=== PATIENT | female | born 1975 | race Caucasian/White ===

== ENCOUNTER → 2017-09-29 | Outpatient (CLI) | payer OTHER | END | disposition home or self-care (01) | LOC: LAB 07:25 | DX: R19.5 Other fecal abnormalities (principal) ==

== ENCOUNTER 2017-11-21 07:15 | Outpatient (CLI) | payer OTHER | END 2017-11-21 07:19 | disposition home or self-care (01) | LOC: LAB 07:15 | DX: D51.0 Vitamin B12 deficiency anemia due to intrinsic factor deficiency (principal); D51.1 Vitamin B12 deficiency anemia due to selective vitamin B12 malabsorption with proteinuria; D50.0 Iron deficiency anemia secondary to blood loss (chronic); D68.0 Von Willebrand disease; D68.8 Other specified coagulation defects; E03.8 Other specified hypothyroidism; N93.8 Other specified abnormal uterine and vaginal bleeding; K29.70 Gastritis, unspecified, without bleeding ==

== ENCOUNTER → 2018-03-28 07:28 | Outpatient (CLI) | payer OTHER | END | disposition home or self-care (01) | LOC: LAB 07:28 | DX: D51.0 Vitamin B12 deficiency anemia due to intrinsic factor deficiency (principal); D51.1 Vitamin B12 deficiency anemia due to selective vitamin B12 malabsorption with proteinuria; D50.0 Iron deficiency anemia secondary to blood loss (chronic); D68.0 Von Willebrand disease; D68.8 Other specified coagulation defects; E03.8 Other specified hypothyroidism; N93.8 Other specified abnormal uterine and vaginal bleeding; K29.70 Gastritis, unspecified, without bleeding; D50.8 Other iron deficiency anemias; D51.8 Other vitamin B12 deficiency anemias; I10 Essential (primary) hypertension; K21.0 Gastro-esophageal reflux disease with esophagitis; R10.13 Epigastric pain; E55.9 Vitamin D deficiency, unspecified; K29.00 Acute gastritis without bleeding ==

== ENCOUNTER 2018-05-16 07:42 | Outpatient (CLI) | payer OTHER | END 2018-05-16 07:50 | disposition home or self-care (01) | LOC: LAB 07:42 | DX: D51.0 Vitamin B12 deficiency anemia due to intrinsic factor deficiency (principal); D51.1 Vitamin B12 deficiency anemia due to selective vitamin B12 malabsorption with proteinuria; D50.0 Iron deficiency anemia secondary to blood loss (chronic); D68.0 Von Willebrand disease; D68.8 Other specified coagulation defects; E03.8 Other specified hypothyroidism; N93.8 Other specified abnormal uterine and vaginal bleeding; K29.70 Gastritis, unspecified, without bleeding; D50.8 Other iron deficiency anemias; D51.8 Other vitamin B12 deficiency anemias; I10 Essential (primary) hypertension ==

== ENCOUNTER 2018-08-03 07:50 | Outpatient (CLI) | payer OTHER | END 2018-08-03 08:22 | disposition home or self-care (01) | LOC: LAB 07:50 | DX: D51.0 Vitamin B12 deficiency anemia due to intrinsic factor deficiency (principal); D51.1 Vitamin B12 deficiency anemia due to selective vitamin B12 malabsorption with proteinuria; D50.0 Iron deficiency anemia secondary to blood loss (chronic); D68.0 Von Willebrand disease; D68.8 Other specified coagulation defects; E03.8 Other specified hypothyroidism; N93.8 Other specified abnormal uterine and vaginal bleeding; K29.60 Other gastritis without bleeding ==

== ENCOUNTER 2018-09-04 12:33 | Outpatient (CLI) | payer OTHER | END 2018-09-04 12:38 | disposition home or self-care (01) | LOC: MAMO-SONO 12:33 | DX: N64.59 Other signs and symptoms in breast (principal); N64.89 Other specified disorders of breast; R10.2 Pelvic and perineal pain; N94.19 Other specified dyspareunia; N63.10 Unspecified lump in the right breast, unspecified quadrant; N63.20 Unspecified lump in the left breast, unspecified quadrant ==

== ENCOUNTER 2018-09-20 07:21 | Outpatient (CLI) | payer OTHER | END 2018-09-20 07:55 | disposition home or self-care (01) | LOC: LAB 07:21 | DX: E03.8 Other specified hypothyroidism (principal); Z00.00 Encounter for general adult medical examination without abnormal findings; I10 Essential (primary) hypertension; E78.2 Mixed hyperlipidemia; N39.0 Urinary tract infection, site not specified; Z11.4 Encounter for screening for human immunodeficiency virus [HIV]; Z12.11 Encounter for screening for malignant neoplasm of colon; E55.9 Vitamin D deficiency, unspecified; Z21 Asymptomatic human immunodeficiency virus [HIV] infection status; R79.9 Abnormal finding of blood chemistry, unspecified; R79.89 Other specified abnormal findings of blood chemistry ==

== ENCOUNTER 2018-09-21 07:48 | Outpatient (CLI) | payer OTHER | END 2018-09-21 13:08 | disposition home or self-care (01) | LOC: LAB 07:48 | DX: I10 Essential (primary) hypertension (principal); E03.8 Other specified hypothyroidism; E78.00 Pure hypercholesterolemia, unspecified; N39.0 Urinary tract infection, site not specified; Z11.4 Encounter for screening for human immunodeficiency virus [HIV]; E55.9 Vitamin D deficiency, unspecified; Z21 Asymptomatic human immunodeficiency virus [HIV] infection status; R79.9 Abnormal finding of blood chemistry, unspecified; R79.89 Other specified abnormal findings of blood chemistry ==

== ENCOUNTER 2018-12-04 07:01 | Outpatient (CLI) | payer OTHER | END 2018-12-04 07:09 | disposition home or self-care (01) | LOC: LAB 07:01 | DX: E03.8 Other specified hypothyroidism (principal); D51.0 Vitamin B12 deficiency anemia due to intrinsic factor deficiency; D51.1 Vitamin B12 deficiency anemia due to selective vitamin B12 malabsorption with proteinuria; D50.0 Iron deficiency anemia secondary to blood loss (chronic); D68.0 Von Willebrand disease; D68.8 Other specified coagulation defects; N93.8 Other specified abnormal uterine and vaginal bleeding; K29.70 Gastritis, unspecified, without bleeding; D50.8 Other iron deficiency anemias; D51.8 Other vitamin B12 deficiency anemias; I10 Essential (primary) hypertension ==

== ENCOUNTER → 2018-12-11 16:35 | Outpatient (CLI) | payer OTHER | END | disposition home or self-care (01) | LOC: LAB 16:35 | DX: E03.8 Other specified hypothyroidism (principal) ==

== ENCOUNTER 2019-04-09 07:04 | Outpatient (CLI) | payer OTHER | END 2019-04-09 07:12 | disposition home or self-care (01) | LOC: LAB 07:04 | DX: D51.0 Vitamin B12 deficiency anemia due to intrinsic factor deficiency (principal); D51.1 Vitamin B12 deficiency anemia due to selective vitamin B12 malabsorption with proteinuria; D50.0 Iron deficiency anemia secondary to blood loss (chronic); D68.0 Von Willebrand disease; D68.8 Other specified coagulation defects; E03.8 Other specified hypothyroidism; N93.8 Other specified abnormal uterine and vaginal bleeding; K29.70 Gastritis, unspecified, without bleeding; D50.8 Other iron deficiency anemias; D51.8 Other vitamin B12 deficiency anemias ==

== ENCOUNTER 2019-10-02 06:51 | Outpatient (CLI) | payer OTHER | END 2019-10-02 06:58 | disposition home or self-care (01) | LOC: LAB 06:51 | DX: E03.8 Other specified hypothyroidism (principal); Z00.00 Encounter for general adult medical examination without abnormal findings; I10 Essential (primary) hypertension; E78.00 Pure hypercholesterolemia, unspecified; N39.0 Urinary tract infection, site not specified; Z11.4 Encounter for screening for human immunodeficiency virus [HIV]; Z12.11 Encounter for screening for malignant neoplasm of colon; E55.9 Vitamin D deficiency, unspecified; Z21 Asymptomatic human immunodeficiency virus [HIV] infection status; R79.89 Other specified abnormal findings of blood chemistry; D50.8 Other iron deficiency anemias; D51.0 Vitamin B12 deficiency anemia due to intrinsic factor deficiency; D51.1 Vitamin B12 deficiency anemia due to selective vitamin B12 malabsorption with proteinuria; D50.0 Iron deficiency anemia secondary to blood loss (chronic); D68.0 Von Willebrand disease; D68.8 Other specified coagulation defects; N93.8 Other specified abnormal uterine and vaginal bleeding; K29.70 Gastritis, unspecified, without bleeding ==

== ENCOUNTER → 2019-10-04 07:28 | Outpatient (CLI) | payer OTHER | END | disposition home or self-care (01) | LOC: LAB 07:28 | DX: E03.8 Other specified hypothyroidism (principal); Z00.00 Encounter for general adult medical examination without abnormal findings; I10 Essential (primary) hypertension; E78.00 Pure hypercholesterolemia, unspecified; N39.0 Urinary tract infection, site not specified; Z11.4 Encounter for screening for human immunodeficiency virus [HIV]; Z12.11 Encounter for screening for malignant neoplasm of colon; E55.9 Vitamin D deficiency, unspecified; Z21 Asymptomatic human immunodeficiency virus [HIV] infection status; R79.89 Other specified abnormal findings of blood chemistry ==

== ENCOUNTER 2019-10-11 14:01 | Outpatient (CLI) | payer OTHER | END 2019-10-11 14:15 | disposition home or self-care (01) | LOC: MAMO-SONO 14:01 | DX: Z12.31 Encounter for screening mammogram for malignant neoplasm of breast (principal); Z87.898 Personal history of other specified conditions; N94.0 Mittelschmerz; R10.2 Pelvic and perineal pain; N94.89 Other specified conditions associated with female genital organs and menstrual cycle; N63.10 Unspecified lump in the right breast, unspecified quadrant; N63.20 Unspecified lump in the left breast, unspecified quadrant; N64.59 Other signs and symptoms in breast; N64.9 Disorder of breast, unspecified ==

== ENCOUNTER → 2019-12-20 08:29 | Outpatient (CLI) | payer OTHER | END | disposition home or self-care (01) | LOC: LAB 08:29 | DX: N39.0 Urinary tract infection, site not specified (principal); R00.2 Palpitations; E03.8 Other specified hypothyroidism ==

== ENCOUNTER 2020-01-22 08:23 | Outpatient (CLI) | payer OTHER | END 2020-01-22 08:30 | disposition home or self-care (01) | LOC: LAB 08:23 | PROVIDERS: ATTEND General Practice | DX: D50.8 Other iron deficiency anemias (principal); E03.8 Other specified hypothyroidism ==

== ENCOUNTER 2020-03-11 06:57 | Outpatient (CLI) | payer OTHER | END 2020-03-11 07:02 | disposition home or self-care (01) | LOC: LAB 06:57 | PROVIDERS: ATTEND General Practice | DX: E03.8 Other specified hypothyroidism (principal); D50.8 Other iron deficiency anemias; I10 Essential (primary) hypertension; D68.8 Other specified coagulation defects; D66 Hereditary factor VIII deficiency; N39.0 Urinary tract infection, site not specified; D51.0 Vitamin B12 deficiency anemia due to intrinsic factor deficiency; D51.1 Vitamin B12 deficiency anemia due to selective vitamin B12 malabsorption with proteinuria; D50.0 Iron deficiency anemia secondary to blood loss (chronic); N93.8 Other specified abnormal uterine and vaginal bleeding; K29.70 Gastritis, unspecified, without bleeding ==

== ENCOUNTER → 2020-08-30 07:32 | Outpatient (CLI) | payer OTHER | END | disposition home or self-care (01) | LOC: LAB 07:32 | PROVIDERS: ATTEND Internal Medicine Hematology & Oncology | DX: D50.8 Other iron deficiency anemias (principal); E03.8 Other specified hypothyroidism; D68.8 Other specified coagulation defects; D68.0 Von Willebrand disease; D51.0 Vitamin B12 deficiency anemia due to intrinsic factor deficiency; D51.1 Vitamin B12 deficiency anemia due to selective vitamin B12 malabsorption with proteinuria; D50.0 Iron deficiency anemia secondary to blood loss (chronic); N93.8 Other specified abnormal uterine and vaginal bleeding; K29.70 Gastritis, unspecified, without bleeding ==

== ENCOUNTER 2020-12-30 06:42 | Outpatient (CLI) | payer OTHER ==
[2021-01-19] MEDS ORDERED: SYNTHROID112 MCG PO (13:34)
[2021-01-19] MEDS ORDERED: OMEPRAZOLE40 MG PO (13:35)
[2021-01-19] MEDS ORDERED: NEURIN (13:35)
[2021-01-19] MEDS ORDERED: FUSION PLUS CA1 EACH PO (13:36)
[2021-01-19] MEDS ORDERED: DESMOPRESS10 MCG/0.2 (13:36)
[2021-01-19] MEDS ORDERED: MULTIPLE VITAM1 EAC2 PO (13:36)
== END 2020-12-30 06:53 | disposition home or self-care (01) ==
LOC: LAB 06:42
PROVIDERS: ATTEND Internal Medicine Hematology & Oncology
DX: D51.0 Vitamin B12 deficiency anemia due to intrinsic factor deficiency (principal); D51.1 Vitamin B12 deficiency anemia due to selective vitamin B12 malabsorption with proteinuria; D50.0 Iron deficiency anemia secondary to blood loss (chronic); D68.8 Other specified coagulation defects; D68.0 Von Willebrand disease; E03.8 Other specified hypothyroidism; N93.8 Other specified abnormal uterine and vaginal bleeding; K29.70 Gastritis, unspecified, without bleeding; D50.8 Other iron deficiency anemias; R74.02 Elevation of levels of lactic acid dehydrogenase [LDH]; K76.89 Other specified diseases of liver; D51.8 Other vitamin B12 deficiency anemias; D69.1 Qualitative platelet defects; I10 Essential (primary) hypertension; E55.9 Vitamin D deficiency, unspecified; R79.9 Abnormal finding of blood chemistry, unspecified; R79.89 Other specified abnormal findings of blood chemistry; N39.0 Urinary tract infection, site not specified; Z11.4 Encounter for screening for human immunodeficiency virus [HIV]; Z12.11 Encounter for screening for malignant neoplasm of colon; Z21 Asymptomatic human immunodeficiency virus [HIV] infection status; Z00.00 Encounter for general adult medical examination without abnormal findings

== ENCOUNTER → 2021-01-01 | Outpatient (CLI) | payer OTHER ==
[~2021-01-01] MED LIST: DESMOPRESS10 MCG/0.2; FUSION PLUS CA1 EACH PO; MULTIPLE VITAM1 EAC2 PO; NEURIN; OMEPRAZOLE40 MG PO; SYNTHROID112 MCG PO
== END | disposition home or self-care (01) ==
LOC: LAB 07:37
PROVIDERS: ATTEND Obstetrics & Gynecology
DX: I10 Essential (primary) hypertension (principal); E03.9 Hypothyroidism, unspecified; N39.0 Urinary tract infection, site not specified; Z12.11 Encounter for screening for malignant neoplasm of colon; E55.9 Vitamin D deficiency, unspecified; Z21 Asymptomatic human immunodeficiency virus [HIV] infection status; R79.9 Abnormal finding of blood chemistry, unspecified; R79.89 Other specified abnormal findings of blood chemistry

== ENCOUNTER 2021-01-26 05:00 | Day surgery (SDC) | payer OTHER | END 2021-01-26 11:00 | disposition home or self-care (01) | LOC: CIR.AMB 05:00 | PROVIDERS: ATTEND Obstetrics & Gynecology | DX: N93.8 Other specified abnormal uterine and vaginal bleeding (principal); Z20.822 Contact with and (suspected) exposure to COVID-19 ==

== ENCOUNTER 2021-08-21 06:57 | Outpatient (CLI) | payer OTHER | END 2021-08-21 07:10 | disposition home or self-care (01) | LOC: LAB 06:57 | PROVIDERS: ATTEND Obstetrics & Gynecology | DX: D50.8 Other iron deficiency anemias (principal); I10 Essential (primary) hypertension; R74.02 Elevation of levels of lactic acid dehydrogenase [LDH]; K76.89 Other specified diseases of liver; D51.8 Other vitamin B12 deficiency anemias; E03.8 Other specified hypothyroidism; D68.8 Other specified coagulation defects; D51.0 Vitamin B12 deficiency anemia due to intrinsic factor deficiency; D51.1 Vitamin B12 deficiency anemia due to selective vitamin B12 malabsorption with proteinuria; D50.0 Iron deficiency anemia secondary to blood loss (chronic); D68.0 Von Willebrand disease; K29.70 Gastritis, unspecified, without bleeding ==

== ENCOUNTER 2021-12-23 07:24 | Outpatient (CLI) | payer OTHER | END 2021-12-23 07:32 | disposition home or self-care (01) | LOC: LAB 07:24 | PROVIDERS: ATTEND Internal Medicine Hematology & Oncology | DX: D50.8 Other iron deficiency anemias (principal); R79.9 Abnormal finding of blood chemistry, unspecified; I10 Essential (primary) hypertension; R74.02 Elevation of levels of lactic acid dehydrogenase [LDH]; K76.89 Other specified diseases of liver; E03.9 Hypothyroidism, unspecified; D68.8 Other specified coagulation defects; D69.1 Qualitative platelet defects; D68.0 Von Willebrand disease; D51.0 Vitamin B12 deficiency anemia due to intrinsic factor deficiency; D51.1 Vitamin B12 deficiency anemia due to selective vitamin B12 malabsorption with proteinuria; D50.0 Iron deficiency anemia secondary to blood loss (chronic); N93.8 Other specified abnormal uterine and vaginal bleeding; K29.70 Gastritis, unspecified, without bleeding ==

== ENCOUNTER 2022-07-28 06:59 | Outpatient (CLI) | payer OTHER | END 2022-07-28 07:02 | disposition home or self-care (01) | LOC: LAB 06:59 | PROVIDERS: ATTEND Internal Medicine Hematology & Oncology | DX: D50.8 Other iron deficiency anemias (principal); R79.9 Abnormal finding of blood chemistry, unspecified; I10 Essential (primary) hypertension; R74.02 Elevation of levels of lactic acid dehydrogenase [LDH]; K76.89 Other specified diseases of liver; D51.8 Other vitamin B12 deficiency anemias; E55.9 Vitamin D deficiency, unspecified; E03.8 Other specified hypothyroidism; D68.8 Other specified coagulation defects; D69.1 Qualitative platelet defects ==

== ENCOUNTER 2023-01-31 06:39 | Outpatient (CLI) | payer OTHER | END 2023-01-31 06:41 | disposition home or self-care (01) | LOC: LAB 06:39 | PROVIDERS: ATTEND Internal Medicine Hematology & Oncology | DX: D50.8 Other iron deficiency anemias (principal); R79.9 Abnormal finding of blood chemistry, unspecified; I10 Essential (primary) hypertension; R74.02 Elevation of levels of lactic acid dehydrogenase [LDH]; K76.89 Other specified diseases of liver; D51.8 Other vitamin B12 deficiency anemias; E55.9 Vitamin D deficiency, unspecified; E03.8 Other specified hypothyroidism; D68.8 Other specified coagulation defects; D69.1 Qualitative platelet defects; D68.00 Von Willebrand disease, unspecified; D51.0 Vitamin B12 deficiency anemia due to intrinsic factor deficiency; D51.1 Vitamin B12 deficiency anemia due to selective vitamin B12 malabsorption with proteinuria; D50.0 Iron deficiency anemia secondary to blood loss (chronic); N93.8 Other specified abnormal uterine and vaginal bleeding; K29.70 Gastritis, unspecified, without bleeding; Z00.00 Encounter for general adult medical examination without abnormal findings; E03.9 Hypothyroidism, unspecified; E78.00 Pure hypercholesterolemia, unspecified; N39.0 Urinary tract infection, site not specified; Z11.4 Encounter for screening for human immunodeficiency virus [HIV]; Z12.11 Encounter for screening for malignant neoplasm of colon; Z21 Asymptomatic human immunodeficiency virus [HIV] infection status; R79.89 Other specified abnormal findings of blood chemistry ==

== ENCOUNTER 2023-08-03 07:15 | Outpatient (CLI) | payer OTHER ==
[2023-08-03 08:23] LABS: HEMOGLOBIN 11.5 g/dL (12.0-15.00); MEAN CELL VOLUME 84.2 fL (80.00-100.00); MEAN CORPUSCULAR HEMOGLOBIN 27.7 pg (27.00-32.0); MEAN CORPUSCULAR HGB CONC 32.9 g/dl (32.0-36.0); PLATELET COUNT 283 K/uL (150-450); RED BLOOD COUNT 4.15 M/uL (4.00-6.00); RED CELL DISTRIBUTION WIDTH 15.9 % (11.5-14.5)
[2023-08-03 08:37] LABS: INR 0.95; PARTIAL THROMBOPLASTIN TIME 28.9 SECONDS (22.0-34.0)
[2023-08-03 08:40] LABS: COL EPI 77 SECONDS (82-175)
[2023-08-03 09:19] LABS: ALBUMIN 3.9 gm/dL (3.4-5.0); BILIRUBIN TOTAL 0.28 mg/dL (0.3-1.2); CALCIUM 9.1 mg/dL (8.5-10.1); CREATININE SERUM 0.82 mg/dL (0.55-1.02); GFR 74.72; GLOBULINA 3.4 G/DL (2.4-3.5); POTASSIUM 3.96 mEq/L (3.5-5.1); T4 FREE 1.13 NG/ML (0.76-1.46); TOTAL PROTEIN 7.3 gm/dL (6.4-8.2); TSH 1.13 uIU/mL (0.358-3.74)
[2023-08-03 09:31] LABS: FOLIC ACID > 20.00 ng/ml (4.78-20); VITAMIN D3 25 HYDROXY 33.37 ng/ml (30-120)
[2023-08-03 11:11] LABS: MANUAL PLATELET COUNT 406
[2023-08-03 11:16] LABS: PLATELET ESTIMATE NORMAL (NORMAL)
== END 2023-08-03 07:16 | disposition home or self-care (01) ==
LOC: LAB 07:15
PROVIDERS: ATTEND Internal Medicine Hematology & Oncology
DX: D50.8 Other iron deficiency anemias (principal); R79.9 Abnormal finding of blood chemistry, unspecified; I10 Essential (primary) hypertension; R74.02 Elevation of levels of lactic acid dehydrogenase [LDH]; K76.89 Other specified diseases of liver; D51.8 Other vitamin B12 deficiency anemias; E55.9 Vitamin D deficiency, unspecified; E03.8 Other specified hypothyroidism; D68.8 Other specified coagulation defects; D69.1 Qualitative platelet defects; D68.01 Von Willebrand disease, type 1; D51.0 Vitamin B12 deficiency anemia due to intrinsic factor deficiency; D51.1 Vitamin B12 deficiency anemia due to selective vitamin B12 malabsorption with proteinuria; N93.8 Other specified abnormal uterine and vaginal bleeding; K29.70 Gastritis, unspecified, without bleeding

== ENCOUNTER 2023-09-30 06:49 | Outpatient (CLI) | payer OTHER ==
[2023-09-30 07:56] LABS: HEMATOCRIT 37.5 % (36.0-45.00); HEMOGLOBIN 12.4 g/dL (12.0-15.00); MEAN CELL VOLUME 82.6 fL (80.00-100.00); MEAN CORPUSCULAR HEMOGLOBIN 27.4 pg (27.00-32.0); MEAN CORPUSCULAR HGB CONC 33.2 g/dl (32.0-36.0); PLATELET COUNT 198 K/uL (150-450); RED BLOOD COUNT 4.54 M/uL (4.00-6.00)
[2023-09-30 08:18] LABS: ALBUMIN 3.5 gm/dL (3.4-5.0); BILIRUBIN TOTAL 0.37 mg/dL (0.3-1.2); CALCIUM 8.7 mg/dL (8.5-10.1); CHOL HDL RATIO 2.4 (0-5.0); CREATININE SERUM 0.84 mg/dL (0.55-1.02); GFR 72.67; GLOBULINA 3.1 G/DL (2.4-3.5); POTASSIUM 3.88 mEq/L (3.5-5.1); TOTAL PROTEIN 6.6 gm/dL (6.4-8.2); TSH 0.564 uIU/mL (0.358-3.74)
[2023-09-30 08:23] LABS: URINE APPEARANCE Clear; URINE BILIRRUBIN Negative (NEGATIVE); URINE BLOOD Negative; URINE COLOR Yellow; URINE GLUCOSE Negative (NEGATIVE); URINE LEUKOCYTE Trace; URINE NITRATE Negative; URINE PROTEIN Negative (NEGATIVE)
[2023-09-30 08:26] LABS: URINE BACTERIA 1465.3 uL (0.0-1933); URINE EPITHELIAL CELLS 23.3 uL (0.0-38.8); URINE WBC 11.7 uL (0.0-23.2)
[2023-09-30 08:47] LABS: ob NEGATIVE (NEGATIVE)
[2023-10-01 10:07] LABS: FOLLICLE STIMULATING HORMONE 4.5 mIU/mL (.); LEUTEINIZING HORMONE 11.1 mIU/mL (.); PROGESTERONA 9.3 ng/mL (.)
== END 2023-09-30 13:54 | disposition home or self-care (01) ==
LOC: LAB 06:49
PROVIDERS: ATTEND General Practice
DX: R00.2 Palpitations (principal); R42 Dizziness and giddiness; Z12.11 Encounter for screening for malignant neoplasm of colon; E55.9 Vitamin D deficiency, unspecified; R73.9 Hyperglycemia, unspecified; D64.9 Anemia, unspecified; E53.8 Deficiency of other specified B group vitamins; N92.1 Excessive and frequent menstruation with irregular cycle; D21.9 Benign neoplasm of connective and other soft tissue, unspecified; D68.00 Von Willebrand disease, unspecified

== ENCOUNTER 2023-10-07 06:53 | Outpatient (CLI) | payer OTHER | END 2023-10-07 14:14 | disposition home or self-care (01) | LOC: LAB 06:53 | PROVIDERS: ATTEND General Practice | DX: D68.00 Von Willebrand disease, unspecified (principal) ==

== ENCOUNTER → 2024-02-01 06:47 | Outpatient (CLI) | payer OTHER ==
[2024-02-01 07:30] LABS: HEMATOCRIT 33.1 % (36.0-45.00); MEAN CELL VOLUME 84.7 fL (80.00-100.00); MEAN CORPUSCULAR HEMOGLOBIN 28.1 pg (27.00-32.0); MEAN CORPUSCULAR HGB CONC 33.2 g/dl (32.0-36.0); PLATELET COUNT 257 K/uL (150-450); RED BLOOD COUNT 3.91 M/uL (4.00-6.00); RED CELL DISTRIBUTION WIDTH 14.2 % (11.5-14.5)
[2024-02-01 07:50] LABS: INR 0.98; PARTIAL THROMBOPLASTIN TIME 30.2 SECONDS (22.0-34.0); PROTHROMBIN TIME 10.3 SECONDS (9.0-11.5)
[2024-02-01 07:53] LABS: COL EPI 105 SECONDS (82-175)
[2024-02-01 08:23] LABS: ALBUMIN 3.7 gm/dL (3.4-5.0); BILIRUBIN TOTAL 0.32 mg/dL (0.3-1.2); CALCIUM 8.7 mg/dL (8.5-10.1); CREATININE SERUM 1.06 mg/dL (0.55-1.02); GFR 55.57; GLOBULINA 3.4 G/DL (2.4-3.5); POTASSIUM 3.8 mEq/L (3.5-5.1); T4 FREE 1.33 NG/ML (0.76-1.46); TOTAL PROTEIN 7.1 gm/dL (6.4-8.2)
[2024-02-01 08:28] LABS: TSH 0.214 uIU/mL (0.358-3.74)
[2024-02-01 12:18] LABS: FOLIC ACID > 20.00 ng/ml (4.78-20); VITAMIN D3 25 HYDROXY 36.81 ng/ml (30-120)
[2024-02-03 08:46] LABS: MANUAL PLATELET COUNT 378
[2024-02-03 08:47] LABS: PLATELET ESTIMATE NORMAL (NORMAL)
[2024-02-03 13:06] LABS: FACTOR VIII ACTIVITY 100 % (56-140); VON WILLERBRAND ACTIVITY 58 % (50-200); VON WILLERBRAND ANTIGEN 98 % (50-200)
== END | disposition home or self-care (01) ==
LOC: LAB 06:47
PROVIDERS: ATTEND Internal Medicine Hematology & Oncology
DX: D50.8 Other iron deficiency anemias (principal); R79.9 Abnormal finding of blood chemistry, unspecified; I10 Essential (primary) hypertension; R74.02 Elevation of levels of lactic acid dehydrogenase [LDH]; K76.89 Other specified diseases of liver; D51.8 Other vitamin B12 deficiency anemias; E03.8 Other specified hypothyroidism; D68.8 Other specified coagulation defects; D69.1 Qualitative platelet defects; D68.1 Hereditary factor XI deficiency; D51.0 Vitamin B12 deficiency anemia due to intrinsic factor deficiency; N93.8 Other specified abnormal uterine and vaginal bleeding; K29.70 Gastritis, unspecified, without bleeding

== ENCOUNTER 2024-06-07 09:45 | Inpatient (IN) | payer OTHER ==
[~2024-06-07] VITALS: Ht 121.9 cm; Wt 55.3 kg
[2024-06-07] MEDS ORDERED: SYNTHROID100 MCG (11:04)
[2024-06-07] MEDS ORDERED: SYNTHROID100 MCG PO (11:04)
[2024-06-07] MEDS ORDERED: IRON325 MG PO (11:04)
[2024-06-07 11:05] VITALS: BP 116/67
[2024-06-07] MEDS ORDERED: B12 ACTIVE1000 MCG PO (11:05)
[2024-06-07] MEDS ORDERED: MULTI VITAMIN1 EACH PO (11:05)
[2024-06-07 11:09] VITALS: BP 124/83
[2024-06-07 11:09] LABS: PH,URINE 5.5 (5.0-8.0); URINE APPEARANCE Clear; URINE BILIRRUBIN Negative (NEGATIVE); URINE BLOOD Negative; URINE COLOR Yellow; URINE GLUCOSE Negative (NEGATIVE); URINE KETONE 15 (NEGATIVE); URINE LEUKOCYTE Negative; URINE NITRATE Negative; URINE PROTEIN Trace (NEGATIVE); URINE UROBILINOGEN 0.2 E.U./dl
[2024-06-07 11:11] LABS: URINE RBC 12.6 uL (0.0-20.8); URINE WBC 2.1 uL (0.0-23.2)
[2024-06-07 11:12] LABS: HEMATOCRIT 29.6 % (36.0-45.00); HEMOGLOBIN 9.7 g/dL (12.0-15.00); MEAN CELL VOLUME 74.7 fL (80.00-100.00); MEAN CORPUSCULAR HEMOGLOBIN 24.4 pg (27.00-32.0); MEAN CORPUSCULAR HGB CONC 32.7 g/dl (32.0-36.0); PLATELET COUNT 229 K/uL (150-450); RED BLOOD COUNT 3.96 M/uL (4.00-6.00); RED CELL DISTRIBUTION WIDTH 15.9 % (11.5-14.5)
[2024-06-07 11:16] LABS: URINE CAST 0.15 uL (0.0-1.40)
[2024-06-07 11:27] LABS: INR 1.01; PARTIAL THROMBOPLASTIN TIME 31.7 SECONDS (22.0-34.0)
[2024-06-07 11:59] LABS: ALBUMIN 3.9 gm/dL (3.4-5.0); BILIRUBIN TOTAL 0.26 mg/dL (0.3-1.2); CALCIUM 8.9 mg/dL (8.5-10.1); CREATININE SERUM 0.72 mg/dL (0.55-1.02); GFR 86.45; GLOBULINA 3.3 G/DL (2.4-3.5); POTASSIUM 3.88 mEq/L (3.5-5.1); TOTAL PROTEIN 7.2 gm/dL (6.4-8.2)
[2024-06-11] MEDS ORDERED: DESMOPRESSIN ACETATE 4 MCG/ML AMPUL IV SCH (06:00)
[2024-06-11] MEDS ORDERED: POVIDONE-IODINE 118 ML BOTT TOP ONE (10:15)
[2024-06-11] MEDS ORDERED: CEFOXITIN SODIUM 2,000 MG VIAL IV SCH (10:15)
[2024-06-11] MEDS ORDERED: MORPHINE SULFATE 4 MG/ML VIAL IV ONE ×2 (11:40→12:10)
[2024-06-11] MEDS ORDERED: MEPERIDINE HCL/PF 50 MG/ML VIAL IV SCH (12:00)
[2024-06-11 14:45] VITALS: BP 116/67
[2024-06-11 16:00] VITALS: BP 121/70
[2024-06-11 17:06] LABS: HEMATOCRIT 24.2 % (36.0-45.00); MEAN CELL VOLUME 73.8 fL (80.00-100.00); MEAN CORPUSCULAR HGB CONC 32.5 g/dl (32.0-36.0); PLATELET COUNT 133 K/uL (150-450); RED BLOOD COUNT 3.27 M/uL (4.00-6.00); RED CELL DISTRIBUTION WIDTH 15.7 % (11.5-14.5)
[2024-06-11 17:15] LABS: MEAN CORPUSCULAR HEMOGLOBIN 24.1 pg (27.00-32.0)
[2024-06-11 17:16] LABS: HEMOGLOBIN 7.9 g/dL (12.0-15.00)
[2024-06-12 00:54] VITALS: BP 109/68
[2024-06-12] MEDS ORDERED: SIMETHICONE 125 MG CAPSULE PO SCH (05:00)
[2024-06-12] MEDS ORDERED: GABAPENTIN 300 MG CAPSULE PO SCH (05:00)
[2024-06-12] MEDS ORDERED: LEVOTHYROXINE SODIUM 100 MCG TABLET PO SCH (06:00)
[2024-06-12] MEDS ORDERED: ACETAMINOPHEN 500 MG GEL..CAP PO SCH (06:00)
[2024-06-12 08:39] VITALS: BP 126/76
[2024-06-12] MEDS ORDERED: IRON FUM,PS/FOLIC/BCOMP,C NO.9 1 CAP CAPSULE PO SCH (09:00)
[2024-06-12] MEDS ORDERED: POLYETHYLENE GLYCOL 3350 17 GM BLIST.PACK PO SCH (09:00)
[2024-06-12] MEDS ORDERED: DESMOPRESSIN ACETATE 4 MCG/ML AMPUL IV SCH ×2 (09:00)
[2024-06-12 10:12] LABS: HEMATOCRIT 32.1 % (36.0-45.00); HEMOGLOBIN 10.6 g/dL (12.0-15.00); MEAN CELL VOLUME 76.6 fL (80.00-100.00); MEAN CORPUSCULAR HEMOGLOBIN 25.3 pg (27.00-32.0); RED BLOOD COUNT 4.19 M/uL (4.00-6.00); RED CELL DISTRIBUTION WIDTH 16.9 % (11.5-14.5)
[2024-06-12 10:14] LABS: PLATELET COUNT 129 K/uL (150-450)
[2024-06-12 16:11] VITALS: BP 140/73
[2024-06-13 01:39] VITALS: BP 130/81
[2024-06-13] MEDS ORDERED: GABAPENTIN300 MG PO (07:11)
[2024-06-13] MEDS ORDERED: SIMETHICONE125 M1 PO (07:11)
[2024-06-13] MEDS ORDERED: PAIN RELIEVER500 M2 PO (07:11)
[2024-06-13] MEDS ORDERED: POLY119PG PO (07:11)
[2024-06-13 08:58] VITALS: BP 137/75
== END 2024-06-13 09:41 | disposition home or self-care (01) | DRG 743 ==
LOC: O/R 06-11 05:30 → SURH 06-11 09:45 → OB/GYN 06-11 12:10
PROVIDERS: ADMIT Obstetrics & Gynecology; ATTEND Obstetrics & Gynecology
PROC: 0UT70ZZ Resection of Bilateral Fallopian Tubes, Open Approach (ICD-10-PCS; 2024-06-11)
PROC: 30233N1 Transfusion of Nonautologous Red Blood Cells into Peripheral Vein, Percutaneous Approach (ICD-10-PCS; 2024-06-11)
PROC: 0UT90ZZ Resection of Uterus, Open Approach (ICD-10-PCS; principal; 2024-06-11 10:00)
DX: D25.1 Intramural leiomyoma of uterus (principal); D25.2 Subserosal leiomyoma of uterus; N93.9 Abnormal uterine and vaginal bleeding, unspecified; R10.2 Pelvic and perineal pain; N80.03 Adenomyosis of the uterus; Z20.822 Contact with and (suspected) exposure to COVID-19; N80.329 Endometriosis of the posterior cul-de-sac, unspecified depth; N84.0 Polyp of corpus uteri

== ENCOUNTER 2024-11-13 06:10 | Outpatient (CLI) | payer OTHER ==
[~2024-11-13 06:10] MED LIST changes: +B12 ACTIVE1000 MCG PO; +GABAPENTIN300 MG PO; +IRON325 MG PO; +MULTI VITAMIN1 EACH PO; +PAIN RELIEVER500 M2 PO; +POLY119PG PO; +SIMETHICONE125 M1 PO; +SYNTHROID100 MCG; +SYNTHROID100 MCG PO
[2024-11-13 07:42] LABS: PARTIAL THROMBOPLASTIN TIME 30.7 SECONDS (22.0-34.0); PROTHROMBIN TIME 10.9 SECONDS (9.0-11.5)
[2024-11-13 07:45] LABS: HEMATOCRIT 38.9 % (36.0-45.00); HEMOGLOBIN 12.9 g/dL (12.0-15.00); MEAN CELL VOLUME 87.8 fL (80.00-100.00); MEAN CORPUSCULAR HEMOGLOBIN 29.2 pg (27.00-32.0); MEAN CORPUSCULAR HGB CONC 33.3 g/dl (32.0-36.0); PLATELET COUNT 203 K/uL (150-450); RED BLOOD COUNT 4.43 M/uL (4.00-6.00); RED CELL DISTRIBUTION WIDTH 13.1 % (11.5-14.5)
[2024-11-13 07:51] LABS: COL EPI 109 SECONDS (82-175)
[2024-11-13 07:56] LABS: ALBUMIN 3.6 gm/dL (3.4-5.0); BILIRUBIN TOTAL 0.44 mg/dL (0.3-1.2); CALCIUM 8.7 mg/dL (8.5-10.1); CREATININE SERUM 0.69 mg/dL (0.55-1.02); GFR 90.81; POTASSIUM 3.91 mEq/L (3.5-5.1); T4 FREE 0.65 NG/ML (0.76-1.46); TOTAL PROTEIN 6.6 gm/dL (6.4-8.2); TSH 0.986 uIU/mL (0.358-3.74)
[2024-11-13 09:12] LABS: MANUAL PLATELET COUNT 280
[2024-11-13 09:14] LABS: PLATELET ESTIMATE NORMAL (NORMAL)
[2024-11-13 13:11] LABS: FOLIC ACID 13.69 ng/ml (4.78-20); VITAMIN D3 25 HYDROXY 37.58 ng/ml (30-120)
[2024-11-15 13:06] LABS: FACTOR VIII ACTIVITY 106 % (56-140); VON WILLERBRAND ACTIVITY 88 % (50-200); VON WILLERBRAND ANTIGEN 91 % (50-200)
== END 2024-11-13 06:21 | disposition home or self-care (01) ==
LOC: LAB 06:10
PROVIDERS: ATTEND Internal Medicine Hematology & Oncology
DX: D68.01 Von Willebrand disease, type 1 (principal); D51.0 Vitamin B12 deficiency anemia due to intrinsic factor deficiency; D51.1 Vitamin B12 deficiency anemia due to selective vitamin B12 malabsorption with proteinuria; D68.00 Von Willebrand disease, unspecified; E03.0 Congenital hypothyroidism with diffuse goiter; N93.8 Other specified abnormal uterine and vaginal bleeding; K29.70 Gastritis, unspecified, without bleeding

== ENCOUNTER 2025-05-16 06:22 | Outpatient (CLI) | payer OTHER ==
[2025-05-16 07:32] LABS: BASO % 0.9 % (0.1-1.2); EOS # 0.72 (0.04-0.54); EOS % 13.7 % (0.7-7.0); LYMPH # 0.78 (1.18-3.74); LYMPH % 14.8 % (19.3-53.1); MEAN PLATELET VOLUME 10.40 fl (9.4-12.4); MONO # 0.22 (0.24-0.82); MONO % 4.2 % (4.7-12.5); NEUT # 3.49 (1.56-6.13); NEUT % 66.2 % (34.0-71.1); RED CELL DISTRIBUTION WIDTH 12.1 % (11.6-14.4)
[2025-05-16 08:03] LABS: INR 0.98
[2025-05-16 08:15] LABS: % SATURACION 25.8 % (15-50); ALT/SGPT 30.0 U/L (12-78); AST/SGOT 22.0 U/L (15-37); BILIRUBIN TOTAL 0.73 mg/dL (0.3-1.2); BUN CREA RATIO 23.0 (7.0-25.0); CREATININE SERUM 0.62 mg/dL (0.55-1.02); FE 86.0 ug/dl (50-170); GFR 102.31; GLOBULINA 3.0 G/DL (2.4-3.5); GLUCOSE FASTING 87.0 mg/dL (65-100); LDH 166.0 U/L (84-246); OSMOLALITY SERUM 281.0 MOSM/KG (275-295)
[2025-05-16 08:31] LABS: COL EPI 103 SECONDS (82-175)
[2025-05-16 09:17] LABS: FOLIC ACID 18.72 ng/ml (4.78-20); VITAMIN D3 25 HYDROXY 44.63 ng/ml (30-120)
== END 2025-05-16 06:30 | disposition home or self-care (01) ==
LOC: LAB 06:22
PROVIDERS: ATTEND Internal Medicine Hematology & Oncology
DX: D50.8 Other iron deficiency anemias (principal); R79.9 Abnormal finding of blood chemistry, unspecified; I10 Essential (primary) hypertension; R74.02 Elevation of levels of lactic acid dehydrogenase [LDH]; K76.89 Other specified diseases of liver; D68.01 Von Willebrand disease, type 1; D51.0 Vitamin B12 deficiency anemia due to intrinsic factor deficiency; D51.1 Vitamin B12 deficiency anemia due to selective vitamin B12 malabsorption with proteinuria; D68.00 Von Willebrand disease, unspecified; E03.8 Other specified hypothyroidism; N93.8 Other specified abnormal uterine and vaginal bleeding; K29.70 Gastritis, unspecified, without bleeding